=== PATIENT | female | born 1950 | race Caucasian/White ===

== ENCOUNTER 2017-10-20 10:02 | Day surgery (SDC) | payer MEDICARE, BC, SELFPAY ==
[2017-10-20] MEDS: SODIUM CHLORIDE 0.9% 1,000 ML 200 ML IV (10:25)
[2017-10-20 10:30] VITALS: BMI 19.5
--- NOTE | 2017-10-20 10:42 | PM.HP.1 ---
History of Present Illness Date Patient Seen: 10/20/17 Time Patient Seen: 10:42 Chief complaint: colonoscopy 25074 Narrative: The patient is a woman who had a colonoscopy 5 years ago in which a polyp was found. She is here for screening examination. No history of blood in her stool. No family history of colon cancer. Patient History Medical History Essential hypertension (Chronic) Hypothyroidism (Chronic) Osteoporosis (Chronic) History of hysterectomy (Resolved) Surgical History History of tonsillectomy (Resolved) Family & Social History Family History: Reviewed 10/20/17 by Florencio Fischer MD Family history unavailable: Yes (No history of cancer) Social History: Tobacco & Substance use: Smoked briefly at age 18 Meds Home Medications Medication Instructions Recorded Confirmed Type Osphena 60 mg DAILY 10/20/17 10/20/17 History Synthroid 75 mcg DAILY 10/20/17 10/20/17 History escitalopram oxalate 10 mg DAILY 10/20/17 10/20/17 History hydrochlorothiazide 25 mg DAILY 10/20/17 10/20/17 History Allergies Allergy/AdvReac Type Severity Reaction Status Date / Time No Known Drug Allergies Allergy Verified 10/20/17 10:25 Review of Systems Review of Systems All systems reviewed & are unremarkable except as noted in HPI and below Cardiovascular Comments: History of probable vasovagal event with syncope he is starting an IV Exam Narrative Exam Narrative: No apparent distress. Lungs are clear to auscultation no rales or rhonchi. Heart regular rate and rhythm without murmur gallop. Abdomen is scaphoid soft nontender without masses. No organ enlargement. Alert and oriented x3. Assessment & Plan Plan: Assessment/Plan Narrative: For screening colonoscopy. Last exam 5 years ago had a polyp. I have discussed the procedure and the rationale with the patient including risks of bleeding, perforation which would necessitate a major operation, failure to find remove all lesions and the potential to tattoo. They appeared to understand and wished to proceed.
--- NOTE | 2017-10-20 10:46 | PM.PREOP ---
Pre-operative Note Interval Note Pre-op Check: Yes History & Physical exam performed today by Physician Changes: No ASA Class (for procedural sedation): II
[2017-10-20 11:18] VITALS: BP 136/75; PULSE 53; RESP 14; TEMP 36.2; O2SAT 100
--- NOTE | 2017-10-20 11:18 | PM.OP.ENDO ---
Operative Date/Time/Diagnoses Date of procedure: 10/20/17 Time of procedure: 11:18 Pre-op diagnosis: Screening examination. Last exam 5 years ago. Personal history of polyps. Post-op diagnosis: same (Normal examination except for tortuosity) Procedure & Clinicians Study performed: Colonoscopy Same procedure as scheduled: Yes Indications: Screening Surgeon: Florencio Fischer Procedure Notes SCOAP/Timeout: Performed Procedure in detail: The patient was placed in the left lateral decubitus position and underwent IV sedation directed by the surgeon consisting of fentanyl and Versed. Digital exam was unremarkable. The scope was inserted and advanced through the rectum into the sigmoid, descending, transverse, and ascending colon. The sigmoid was quite tortuous as was portions of the transverse colon.. The cecum was reached identified by the ileocecal valve and the appendiceal opening. The scope was gradually brought out. No Polyps were found. The scope ultimately was retroflexed in the rectum. The appearance was[normal except for 1 small scar on a tiny hemorrhoid.]. The scope was removed and the patient tolerated the procedure well Scope withdrawal time: 8.5 min Sedation minutes: 24 Findings: other findings (Tortuous colon) Specimen(s): none sent Recommendations: Colonscopy in 5 years (Due to personal history of polyps) Follow up: as needed Disposition: PACU
[2017-10-20] MEDS: fentaNYL 250 MCG/5 ML INJ IV (11:19)
[2017-10-20] MEDS: MIDAZOLAM 5 MG/5 ML VIAL IV (11:20)
--- NOTE | 2017-10-20 11:21 | P.OP.ENDO_ITS ---
Operative Date/Time/Diagnoses Date of procedure: 10/20/17 Time of procedure: 11:18 Pre-op diagnosis: Screening examination. Last exam 5 years ago. Personal history of polyps. Post-op diagnosis: same (Normal examination except for tortuosity) Procedure & Clinicians Study performed: Colonoscopy Same procedure as scheduled: Yes Indications: Screening Surgeon: Florencio Fischer Procedure Notes SCOAP/Timeout: Performed Procedure in detail: The patient was placed in the left lateral decubitus position and underwent IV sedation directed by the surgeon consisting of fentanyl and Versed. Digital exam was unremarkable. The scope was inserted and advanced through the rectum into the sigmoid, descending, transverse, and ascending colon. The sigmoid was quite tortuous as was portions of the transverse colon.. The cecum was reached identified by the ileocecal valve and the appendiceal opening. The scope was gradually brought out. No Polyps were found. The scope ultimately was retroflexed in the rectum. The appearance was[ normal except for 1 small scar on a tiny hemorrhoid.]. The scope was removed and the patient tolerated the procedure well Scope withdrawal time: 8.5 min Sedation minutes: 24 Findings: other findings (Tortuous colon) Specimen(s): none sent Recommendations: Colonscopy in 5 years (Due to personal history of polyps) Follow up: as needed Disposition: PACU
[2017-10-20 11:23] VITALS: BP 139/76; PULSE 49; RESP 11; O2SAT 100
[2017-10-20 11:53] VITALS: BP 161/83; PULSE 46; RESP 15; TEMP 36.2; O2SAT 99
== END 2017-10-20 12:10 | disposition home or self-care (01) ==
PROVIDERS: PCP Family Medicine Geriatric Medicine; Visit Provider Specialist
PROC: 0DJD8ZZ Inspection of Lower Intestinal Tract, Via Natural or Artificial Opening Endoscopic (ICD-10-PCS; CPT 45378; principal; 2017-10-20 11:00)
DX: Z12.11 Encounter for screening for malignant neoplasm of colon (principal); Z86.010 Personal history of colon polyps; I10 Essential (primary) hypertension; E03.9 Hypothyroidism, unspecified
CPT/HCPCS: G0105; 99152; J2250; J3010

== ENCOUNTER → 2018-06-15 19:46 | Outpatient (REF) | payer MEDICARE, BC, SELFPAY ==
[2018-06-15 20:32] LABS: Eosinophils Absolute Auto 100 /uL (0-450); Eosinophils Percent Auto 1.3 % (2-4); White Blood Cell Count 6.5 X10^3/uL (4.5-11.0)
[2018-06-17 18:13] LABS: Immunoglobulin E 4 kU/L (< 115)
[2018-06-18 21:17] LABS: ANA Screen, IFA Negative (Negative)
== END ==
LOC: LAB 19:46
PROVIDERS: Visit Provider Family Medicine Geriatric Medicine
DX: J31.0 Chronic rhinitis (principal)
CPT/HCPCS: 36415; 82785; 85009; 86038

== ENCOUNTER → 2021-03-07 14:35 | Outpatient (CLI) | payer MEDICARE, OTHER, SELFPAY | PROVIDERS: PCP Family Medicine Geriatric Medicine; Visit Provider Specialist | DX: R30.0 Dysuria (principal); R39.9 Unspecified symptoms and signs involving the genitourinary system; N39.41 Urge incontinence; N95.2 Postmenopausal atrophic vaginitis; N81.6 Rectocele | CPT/HCPCS: 81002; 87077; 87086; 87186; 99215 ==

== ENCOUNTER → 2022-01-13 07:55 | Outpatient (CLI) | payer MEDICARE, OTHER, SELFPAY ==
[2022-01-13 08:25] LABS: COVID19 -Nasal RAPID Negative (Negative)
== END ==
PROVIDERS: PCP Family Medicine; Visit Provider Obstetrics & Gynecology
DX: Z20.822 Contact with and (suspected) exposure to COVID-19 (principal)
CPT/HCPCS: 87635

== ENCOUNTER 2022-01-13 07:59 | Day surgery (SDC) | payer MEDICARE, OTHER, SELFPAY ==
[2022-01-13] VITALS (11 sets, daily range): BP systolic 121–162; BP diastolic 62–82; PULSE 52–75; RESP 14–18; TEMP 36.2–36.9; O2SAT 95–100; BMI 20.1
--- NOTE | 2022-01-13 07:54 | PM.HP.1 ---
History of Present Illness History of Present Illness Date Patient Seen: 01/13/22 Time Patient Seen: 09:51 Chief complaint: ANTERIOR POSTERIOR REPAIR *OPB* Narrative: Patient is a 71-year-old 2 para 1 with symptomatic cystocele and rectocele here for an anterior and posterior repair. Patient History Medical History Arthritis Essential hypertension Hypothyroidism Lower urinary tract symptoms (LUTS) Osteoporosis Postmenopausal atrophic vaginitis Urge incontinence Surgical History History of hysterectomy History of tonsillectomy Family & Social History Family History Mother Cancer Social History: household members spouse Tobacco & Substance use: Smoking Status Never smoker alcohol intake current Meds Home Medications and Allergies Home Medications Medication Instructions Recorded Confirmed Type Multi Vitamin 1 100 g PO DAILY 10/20/17 01/13/22 History Probiotic 100 mg DAILY 10/20/17 01/13/22 History Vitamin D3 5,000 units DAILY 10/20/17 01/13/22 History escitalopram oxalate 10 mg PO DAILY 10/20/17 01/13/22 History hydrochlorothiazide 25 mg DAILY 10/20/17 01/13/22 History vitamin K2 2.5 mg PO DAILY 10/20/17 01/13/22 History estradiol 0.01% (0.1 mg/gram) 1 g vaginal 2XW #42.5 grams 03/07/21 01/13/22 Rx vaginal cream (Estrace) tumeric 100 mg-abdiaziz 150 mg-olive 100 cap PO DAILY 06/06/21 01/13/22 History 50 mg-oreg 150 mg-caprylate capsule levothyroxine 50 mcg capsule 50 mcg PO DAILY 08/07/21 01/13/22 History Allergies Allergy/AdvReac Type Severity Reaction Status Date / Time No Known Drug Allergies Allergy Verified 01/13/22 08:36 Exam Narrative Exam Narrative: HEENT: No thyromegaly, no anterior cervical or supraclavicular lymphadenopathy. Lungs:Clear to auscultation bilaterally, no wheezes. Cardiovascular: Regular rate and rhythm, no murmurs, rubs, or gallops. Abdomen: Well-healed scars. No hepatosplenomegaly. No masses palpable. External genitalia: Normal Vagina: Third-degree cystocele, third-degree rectocele Cervix: Absent Bimanual exam: Uterus absent, no masses or tenderness Rectal: Rectocele Assessment & Plan Assessment & Plan narrative: Assessment: 71-year-old 2 para 1 with symptomatic cystocele and rectocele Desires surgical management Plan: Anterior and posterior repair The risks, benefits, and alternatives to the procedure were explained to the patient. The risks including bleeding, infection, injury to the bladder, urethra, or rectum. She understands these risks and agrees to proceed. A full par Q was held and consent form was signed. COVID-19 COVID-19 status: Negative Result date/Date tested (Pos, Neg/Pending): 01/13/22 Time Spent With Patient Time with patient: less than 30 minutes Critical Care time: I spent a total of [] minutes of critical care time on this patient's care today; this time is exclusive of procedural time.
--- NOTE | 2022-01-13 07:55 | PM.PREOP ---
Pre-operative Note COVID-19 COVID-19 status: Negative Result date/Date tested (Pos, Neg/Pending): 01/13/22 Criteria for continued procedure: Non-surgical alternatives not available or appropriate per current SOC Interval Note History & Physical reviewed/Exam performed by Physician: Yes Changes to H&P: No H&P completed within 30 days and has changed as indicated here:: 01/01/22
[2022-01-13] MEDS: LACTATED RINGERS 1,000 ML 100 ML IV ×3 (09:18→22:04)
[2022-01-13] MEDS: ACETAMINOPHEN 325 MG TABLET 975 MG PO (09:45)
[2022-01-13] MEDS: CEFAZOLIN 2 GM/100 ML PREMIX 100 ML IV (10:10)
--- NOTE | 2022-01-13 10:10 | SUR.OPER ---
Lithotomy on padded OR bed, head on pillow, arms secured on padded arm boards at <90 degrees abduction. Legs secured in padded yellow fins stirrups.
[2022-01-13] MEDS: BUPIVACAINE 0.5% (PF) 30 ML, EPINEPHrine 0.15 MG INJ (10:29)
--- NOTE | 2022-01-13 11:25 | P.OP_ITS ---
Operative Date/Time/Diagnoses Date of procedure: 01/13/22 Time of procedure: 11:25 Pre-op diagnosis: Symptomatic cystocele and rectocele Post-op diagnosis: same Procedure & Clinicians Procedure: Procedures Operation Date: 01/13/22 09:45 Actual Procedure Side Surgeon p Anterior/Posterior Repair Nikkie Chow MD Excision of a small piece of mesh at the vaginal cuff. Indications: Symptomatic cystocele and rectocele Surgeon: Nikkie Chow Internet Database Specialist: Sidra Fu Anesthesia Type: General and Local Operative Notes Findings: On the patient's right side at the vaginal cuff there was a 4 mm piece of mesh exposed Third-degree cystocele Third-degree rectocele Closure Type: primary Specimen(s): none Estimated blood loss (mL): 20 Blood products transfused: none Procedure in detail: The patient was taken to the operating room where she was placed in the dorsal supine position. After adequate general endotracheal anesthesia was achieved, she was placed in the dorsal lithotomy position, and prepped and draped in the u sual sterile fashion. A weighted speculum was placed into the vagina. At the right side of the vaginal cuff there was a small piece of mesh that was visualized. This was excised with Metzenbaum scissors. Two simple interrupted sutures with 2-0 chromic were placed to close the vaginal cuff area. Wide Allis clamps were placed in the midline along the cystocele. 10 cc of 0.25% Marcaine with epinephrine were injected submucosally. Narrow Allis clamps were placed at the apex of the cystocele. An incision was made with a 10. Blade between the 2 narrow Allis clamps. The mucosa was undermined in the midline using the Metzenbaum scissors and the wide Allis clamps were moved to the edges of the mucosa. The underlying fascia was dissected off of the mucosa using a 10. Blade and an open moistened ray tecs. The fascia was reapproximated using 0 Vicryl with horizontal mattress sutures. The excess vaginal mucosa was excised. The mucosa was closed with 2-0 Vicryl in simple interrupted sutures including the underlying fascia to close the space. Hemostasis was achieved. The weighted speculum was removed from the vagina. Allis clamps were placed at the mucocutaneous junction. 5 cc of 0.25% Marcaine with epinephrine were injected between the Allis clamps and down onto the perineal body. An incision was made between the 2 Allis clamps and a small triangular piece of tissue including the underlying subcutaneous layer was removed from the perineum. Wide Allis clamps were placed in the midline of the rectocele. 10 cc of 0.25% Marcaine with epinephrine were injected submucosally on either side of the midline. The mucosa was undermined using the Metzenbaum scissors and the wide Allis clamps were moved to the edges of the mucosa. The fascia was dissected off of the muco sa using an open moistened Ray-Arina and a 10. Blade. The fascia was reapproximated using 0 Vicryl. The excess vaginal mucosa was excised. The mucosa was closed with a series of simple interrupted sutures using 2-0 Vicryl including the underlying fascia closed the space. On the perineum the levator muscle was reapproximated with 2-0 Vicryl. The skin was closed with 2 0 chromic in a subcuticular fashion. A rectal exam was performed and there were no sutures palpable in the rectum. There was clear urine in the Suazo bag. A Betadine moistened vaginal packing was placed. Sponge, lap, and instrument counts were correct x2. The patient tolerated the procedure well, and was taken to PACU in stable condition. Complications: none Post-operative Condition: stable Disposition: PACU Plan for aftercare: To acute care after recovery
[2022-01-13] MEDS: IBUPROFEN 600 MG TABLET PO (15:59)
--- NOTE | 2022-01-13 18:19 | PC.NURSE ---
Patient was brought up from PACU to room 216 approximately 12noon, settled and admitted by gissell RN. Assess patient and assumed care at 1230, oriented patient to room and call light and plan of care. Patient has no questions or concerns. Denies pain, VSS. Suazo in place draining clear yellow urine, vaginal packing in place with desmond pad on. No bleeding noted. Patient now tolerating general diet and trying to increase her water intake. IV fluids infusing as ordered. Call light within reach.
[2022-01-13] MEDS: ACETAMINOPHEN 325 MG TABLET 650 MG PO (18:26)
[2022-01-13] MEDS: DOCUSATE 100 MG CAPSULE 200 MG PO (20:39)
--- NOTE | 2022-01-13 21:29 | PC.NURSE ---
Patient is alert and oriented. [place] w/bilateral hearing aids. Breath sounds CTA with RA sat of 96%. HRR. Denies nausea. BT present and has passed flatus since return from surgery. Indwelling catheter is patent; urine is clear, light yellow. Has vaginal packing in place and no drainage on peripad other than betadine. Plan is to remove packing and catheter at 0600 and then DC pending voiding trial. Is able to turn herself in bed. Assisted out of bed and made [address] [facility] and then back to room; tolerated well. Wearing bilateral calf SCD's. Denies pain and declined Ibuprofen. Fall risk score is low.
[2022-01-14 00:44] VITALS: BP 132/64; PULSE 59; RESP 18; TEMP 36.6; O2SAT 98
[2022-01-14] MEDS: IBUPROFEN 600 MG TABLET PO (03:14)
[2022-01-14 05:20] VITALS: BP 144/72; PULSE 56; RESP 18; TEMP 36.3; O2SAT 99
[2022-01-14] MEDS: LEVOTHYROXINE 50 MCG TABLET PO (06:14)
[2022-01-14 06:31] LABS: Add Manual Diff / Slide Review NO; Basophils Absolute Auto 0 /uL (0-100); Basophils Percent Auto 0.3 % (0-2); Eosinophils Absolute Auto 0 /uL (0-450); Eosinophils Percent Auto 0.2 % (2-4); Hematocrit 34.4 % (36-46); Hemoglobin 11.8 g/dL (12.0-16.0); Lymphocytes Absolute Auto 1400 /uL (1100-4500); Lymphocytes Percent Auto 15.4 % (25-40); Mean Corpuscular HGB Conc 34.3 % (30-36); Mean Corpuscular Hemoglobin 31.4 PG (26-34); Mean Corpuscular Volume 91.4 fL (80-100); Monocytes Absolute Auto 700 /uL (0-900); Monocytes Percent Auto 7.7 % (3-14); Neutrophils Absolute Auto 6800 /uL (1500-7000); Neutrophils Percent Auto 76.4 % (50-75); Platelet Count 246 X10^3/uL (150-400); Red Blood Cell Count 3.77 X10^6/uL (4.0-5.2); Red Cell Distribution Width 13.1 % (11.6-14.8); White Blood Cell Count 8.9 X10^3/uL (4.5-11.0)
[2022-01-14 06:52] LABS: BUN Creatinine Ratio 20.3 (6-22); Blood Urea Nitrogen 12 mg/dL (7-17); Calcium 8.6 mg/dL (8.4-10.2); Carbon Dioxide 30 mmol/L (22-32); Chloride 93 mmol/L (98-107); Estimated Glomerular Filt Rate > 60 mL/min (>60); Glucose 109 mg/dL (80-110); HEMOLYSIS < 15 (0-50); Potassium 3.7 mmol/L (3.4-5.1); Sodium 128 mmol/L (137-145)
--- NOTE | 2022-01-14 08:51 | PC.NURSE ---
Patient felt urge to urinate this morning upon waking up. Voided 275 of yellow urine, pink tinged with blood. PVR shows 58-64. Message left with Dr. Chow's nurse. Patient has no complaints this morning. tolerating breakfast and hopeful for discharge.
--- NOTE | 2022-01-14 08:57 | CM.DANOTE ---
Initial DCP Assessment Note Pt is a 71 yo female, resident of [facility], POD 1 from Anterior/Posterior Repair/cystocele and rectocele by Dr Chow PCP: Tip Bowers Payer: YASMINE/Denia Reviewed chart, met w/patient this morning; introduced self and role. Patient indp and active at baseline and has no concern about her return home w/family to assist as needed. Patient hopeful she will be discharged today, sister to transport back to [facility]. 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 No barriers identified at this time to patient's safe discharge home w/family to assist; close outpatient f/u recommended. CM team will plan to follow closely in case any DC needs or concerns arise NURY Mccray Discharge Planning/Care Management CM Discharge Assessment Start: 01/14/22 08:54 Freq: Status: Active Protocol: Document 01/14/22 08:55 RHODA (Rec: 01/14/22 08:57 RHODA [id number]) Discharge Planning Assessment Assigned Bladder Tier NURY Pollard DPOA/Assigned Designee Name sister Batista Contact Information [phone] Advance Directives? No History Provided By Patient,Medical Record Prior Living Arrangements House Household Members family Type of transporation used prior to Drives own vehicle admit Independent with ADL's Yes Is patient alert and oriented? Yes Comment Home Barriers to Discharge No Discharge Plan Home Transportation Arrangement Family pov Referrals Initiated None needed
[2022-01-14 09:27] VITALS: BP 148/70; PULSE 52; RESP 16; TEMP 36; O2SAT 99
[2022-01-14] MEDS: DOCUSATE 100 MG CAPSULE 200 MG PO (09:55)
[2022-01-14] MEDS: hydroCHLOROthiazide 25 MG TABLET PO (09:55)
--- NOTE | 2022-01-14 10:34 | PC.NURSE ---
Discharge instructions reviewed with patient. Follow up appointments scheduled. IV removed by CARCASS WASHER. Patient without questions or concerns at this time. Escorted out via wheelchair with all her belongings. Patient instructed to call Dr. Chow with questions or concerns.
== END 2022-01-14 10:15 | disposition home or self-care (01) ==
LOC: OR 08:00 → AC 08:00
PROVIDERS: PCP Family Medicine; Referring Provider Obstetrics & Gynecology; Visit Provider Obstetrics & Gynecology
PROC: (CPT 57260; principal; 2022-01-13 09:45)
DX: N81.10 Cystocele, unspecified (principal); N81.6 Rectocele; Z20.822 Contact with and (suspected) exposure to COVID-19
CPT/HCPCS: 57260; 36415; 80048; 85025; 87635; C9803; J0171; J0690; J1100; J1885; J2250; J2405; J2704; J3010

== ENCOUNTER → 2023-06-15 14:05 | Outpatient (CLI) | payer MEDICARE, OTHER, SELFPAY ==
[2022-01-13 08:18] VITALS: BMI 20.1
--- NOTE | 2023-06-15 | PATH_ITS ---
Note [facility] Accession Number: [id number] TESTS RESULT FLAG UNITS REF RANGE LAB Clinician Provided Cytology Information No. of containers..08 Previously Prepared Cytology Slide 35 Unknown Storage/container code(s) Source: RIGHT MID THYROID NODULE DIAGNOSIS: RIGHT MID THYROID NODULE, FINE NEEDLE ASPIRATION. NEGATIVE FOR MALIGNANT CELLS. ADEQUATE FOR EVALUATION. FOLLICULAR GROUPS ARE PRESENT. BENIGN FOLLICULAR (GOITEROUS) NODULE (BETHESDA CATEGORY II), SEE COMMENT. COMMENT: MICROSCOPIC EXAMINATION REVEALS A MILDLY CELLULAR ASPIRATE, COMPOSED OF COLLOID, FOLLICULAR GROUPS WITHOUT SIGNIFICANT CYTOLOGIC OR ARCHITECTURAL ATYPIA, AND BACKGROUND MACROPHAGES. THESE FINDINGS SUPPORT A BENIGN FOLLICULAR (GOITEROUS) NODULE. CORRELATION WITH CLINICAL AND RADIOGRAPHIC FINDINGS IS RECOMMENDED. ACCORDING TO THE BETHESDA REPORTING SYSTEM FOR THYROID CYTOPATHOLOGY, THE RISK OF MALIGNANCY IN THE CATEGORY BENIGN-CATEGORY II IS 0-3%; THEREFORE RECOMMEND CONTINUED ULTRASOUND SURVEILLANCE WITH REPEAT FNA IF THE NODULE SIGNIFICANTLY INCREASES IN SIZE. Pathologist ICD10: 01 E04.1 Signed out by: Soto Bond MD, Pathologist NPI- [id number] Performed by: Darwin Cardoso, Individual Pension Consultant ([facility]) Gross description: 30 CC, COLORLESS, CLEAR RECIEVED: IN CYTOLYT WITH 9 ALCOHOL FIXED AND 9 QUICK STAINED SLIDES ALSO 1 RNA VIAL WILL ON 01-02-2025.VO /VDU 06/16/2023 0548 [facility] FLAG LEGEND: L-Low Normal,H-High Normal,LL-Alert Low,HH-Alert High <-Panic Low,>-Panic High,A-Abnormal,AA-Critical Abnormal Performed at: 01 [facility] [address] [place] [address] [address], [place] [address] Moe Rivas MD, Performed at: 01 [facility] [address] [place] [address] [address], [place], [place] [id number] MD Moe Rivas MD Phone: [phone]
--- NOTE | 2023-06-15 14:06 | DI.US.S_ITS ---
PROCEDURE: US FINE NEEDLE ASPIRATION INDICATIONS: Nontoxic single thyroid nodule TECHNIQUE: The indications, alternatives, benefits, risks, and complications of the procedure were explained to the patient. Written informed consent was obtained and placed in the chart. The thyroid region was examined sonographically and a site was chosen for ultrasound guided percutaneous sampling. The skin was prepared and draped in the usual fashion, and anesthetized with 1% lidocaine infiltrated from the skin down to the thyroid gland. Multiple passes were then performed, with contents emptied into an appropriate pathology specimen container. A bandage was applied to the area of access at completion of the study. COMPARISON: [facility], , US SOFT TISSUE HEAD OR NECK, 05/06/2023, 13:11. FINDINGS: Location(s) of lesion(s) sampled: 2 cm right mid/inferior thyroid nodule [place]: 25 gauge hypodermic needles. Number of passes: 9 Medications: 1% lidocaine for local anaesthesia. Complications: None. IMPRESSION: Successful ultrasound-guided thyroid nodule fine needle aspiration, with cytology results pending. Please see chart below for management recommendations based on cytology results. [facility] ReportingRecommendationsNon-diagnostic* Repeat US-guided FNA, with on-site cytology evaluation if possible. * Repeated non-diagnostic nodules without high suspicion US features: close observation vs surgical consult. * Consider surgery if nodule has high suspicion US features, grows >20% in 2 dimensions on followup, or patient has clinical risk factors for malignancy. Benign* If nodule has high suspicion US features: repeat US and FNA within 12 months. * If nodule has low to intermediate suspicion US features: repeat US at 12-24 months. If nodule grows (20% increase in at least 2 dimensions, with minimal increase of 2 mm or >50% change in volume), or development of new suspicious US features, then repeat FNA or continue followup. * If nodule has very low suspicion US features: followup US at >24 months. Atypia of undetermined significance, follicular lesion of undetermined significanceRepeat FNA, molecular testing, followup US, or surgical consult.Follicular neoplasm, suspicious for follicular neoplasmSurgical consult; also consider molecular testing. Suspicious for malignancySurgical consult.MalignantSurgical consult. Dictated by: Estrella Keene M.D. on 06/15/2023 at 15:56 Approved by: Estrella Keene M.D. on 06/15/2023 at 15:57
== END ==
PROVIDERS: PCP Family Medicine; Referring Provider Student in an Organized Health Care Education/Training Program; Visit Provider Student in an Organized Health Care Education/Training Program
DX: E04.1 Nontoxic single thyroid nodule (principal)
CPT/HCPCS: 10005

== ENCOUNTER → 2024-02-14 14:04 | Outpatient (CLI) | payer MEDICARE, OTHER, SELFPAY ==
[2022-01-13 08:18] VITALS: BMI 20.1
--- NOTE | 2024-02-14 | DI.MRI.S_ITS ---
PROCEDURE: MR KNEE RT WO CON INDICATIONS: right leg pain TECHNIQUE: Noncontrast sagittal PD fast spin echo and T2 fast spin echo with fat saturation, sagittal 3-D FLASH with fat saturation; coronal T1 spin echo and PD fast spin echo with fat saturation, and axial PD fast spin echo with fat saturation through the knee. COMPARISON: None. FINDINGS: Image quality: Excellent. Menisci: There is peripheral displacement of medial meniscus bowing medial collateral ligament. Complex tear involving body and posterior horn of medial meniscus extending to both superior and inferior articulating surfaces. There is also oblique tear involving posterior horn of lateral meniscus extending to inferior articulating surface. Lobulated and septated cystic structures are noted posterior to the medial and lateral menisci concerning for parameniscal cysts. The lateral meniscus is intact. Moderate grade partial-thickness tear involving posterior medial meniscal root ligament is seen. Cruciate ligaments: The anterior cruciate ligament is mildly thickened. The posterior cruciate ligament is intact. Medial structures: The medial collateral ligament appears thickened with surrounding soft tissue edema and intrasubstance T2 hyperintense signal. Visualized portions of the pes anserinus tendons appear normal. No abnormal bursal fluid. Lateral structures: The lateral collateral ligament, long and short heads of the biceps femoris tendon appear intact. The popliteus tendon appears normal. Iliotibial band appears normal. Anterior structures: Distal quadriceps tendinosis at its superior patellar insertion. The patellar tendon is intact. Patellar alignment is normal. No edema in the infrapatellar fat pad. Bones and cartilage: [id number] tricompartmental osteoarthritis and chondromalacia most notably in medial femoral tibial compartment. No marrow edema. No acute fracture or dislocation. Joint space: There is small to moderate knee joint fluid. There is a small popliteal cyst measures 3.8 x 2.8 x 3.5 cm in size. Normal appearing synovial plicae are incidentally noted. IMPRESSION: 1. Complex tear involving body and posterior horn of medial meniscus extending to both superior and inferior articulating surfaces. Oblique tear involving posterior horn of lateral meniscus extending to inferior articulating surface. Lobulated and septated cystic structures posterior to medial and lateral menisci suggestive of parameniscal cysts. Moderate grade partial-thickness tear involving posterior medial meniscal root ligament. 2. Low-grade ACL sprain. The PCL is intact. 3. Low-grade sprain/intrasubstance partial-thickness tear involving MCL. 4. Distal quadriceps tendinosis. 5. 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 No fracture or dislocation. Small to moderate joint effusion and a small popliteal cyst as above, no gross intra-articular loose bodies. Dictated by: Octaviano Hackett M.D. on 02/15/2024 at 12:43 Approved by: Octaviano Hackett M.D. on 02/15/2024 at 12:48
== END ==
LOC: MRI 14:05
PROVIDERS: PCP Family Medicine; Referring Provider Family Medicine; Visit Provider Family Medicine
DX: S83.231A Complex tear of medial meniscus, current injury, right knee, initial encounter (principal); S83.281A Other tear of lateral meniscus, current injury, right knee, initial encounter; S83.8X1A Sprain of other specified parts of right knee, initial encounter; S83.511A Sprain of anterior cruciate ligament of right knee, initial encounter; S83.411A Sprain of medial collateral ligament of right knee, initial encounter; M17.11 Unilateral primary osteoarthritis, right knee; M94.261 Chondromalacia, right knee; M25.461 Effusion, right knee; M71.21 Synovial cyst of popliteal space [Baker], right knee; M79.604 Pain in right leg
CPT/HCPCS: 73721

== ENCOUNTER → 2024-02-23 13:00 | Outpatient (CLI) | payer MEDICARE, OTHER, SELFPAY ==
[2022-01-13 08:18] VITALS: BMI 20.1
--- NOTE | 2024-02-23 13:03 | DI.MRI.S_ITS ---
PROCEDURE: MR LOWER LEG RT WO CON INDICATIONS: POSSIBLE CALF MUSCLE TEAR TECHNIQUE: Noncontrast coronal and sagittal T1 spin echo and STIR; axial T1 spin echo and T2 fast spin echo with fat saturation through the right lower leg. COMPARISON: [facility], , MR KNEE RT WO CON, 02/14/2024, 14:33. FINDINGS: Image quality: Excellent. Bones: The visualized bone marrow demonstrates normal signal on all sequences. The overlying cortex appears intact. No fractures lines or intra-osseous lesions. Soft tissues: The scanned muscles demonstrate normal overall bulk and internal signal. Subcutaneous tissues appear normal as well. No soft tissue masses are present. Joints: Please refer to the 02/14/2024 MRI right knee exam for details regarding the right knee joint. There is no significant tibiotalar joint effusion. Other: Susceptibility artifact is present at the plantar aspect of the right hindfoot (8/39). IMPRESSION: 1. No MR evidence of a tear in the visualized right lower extremity musculature. 2. Possible embedded debris at the right hindfoot plantar aspect. Please correlate with physical exam. Dictated by: Fabiano Jones M.D. on 02/23/2024 at 14:24 Approved by: Fabiano Jones M.D. on 02/23/2024 at 14:33
== END ==
PROVIDERS: PCP Family Medicine; Referring Provider Family Medicine; Visit Provider Family Medicine
DX: S86.811A Strain of other muscle(s) and tendon(s) at lower leg level, right leg, initial encounter (principal); M79.604 Pain in right leg; X58.XXXA Exposure to other specified factors, initial encounter
CPT/HCPCS: 73718